=== PATIENT | male | born 1990 | race Native Hawaiian/Other Pacific Islander ===

== ENCOUNTER 2017-06-28 20:00 | Emergency (ER) | payer BC ==
[2017-06-29 06:39] VITALS: BP 150/75
== END 2017-06-28 22:24 | disposition left against medical advice (07) ==
LOC: ED 20:00
DX: G43.909 Migraine, unspecified, not intractable, without status migrainosus (principal); Z53.21 Procedure and treatment not carried out due to patient leaving prior to being seen by health care provider